=== PATIENT | female | born 1935 | race Caucasian/White ===

== ENCOUNTER 2018-01-10 16:15 | Observation (INO) | payer OTHER ==
[2018-01-10] MEDS ORDERED: SODIUM CHLORIDE 1,000 ML IV STA (16:20)
[2018-01-10] MEDS ORDERED: MAG HYDROX/AL HYDROX/SIMETH 30 ML UNIT-DOSE CUP PO ONE (17:05)
[2018-01-10] MEDS ORDERED: FAMOTIDINE 20 MG/50 ML IVPB 20 MG/50 ML MG IVPB ONE ×2 (17:05→17:18)
[2018-01-10] MEDS ORDERED: ACETAMINOPHEN 1000 MG/100 ML VIAL (NON FORMULARY) IVPB ONE (17:05)
--- NOTE | 2018-01-10 17:05 | PDOC ---
History of Present Illness - General Chief Complaint: Diarrhea Stated Complaint: diarrhea Time Seen by Provider: 01/10/18 16:21 History Source: Patient Exam Limitations: No Limitations - History of Present Illness Initial Comments: 01/10/18 19:25 Shine 82 YOF with HTN, HLD presenting with multiple episodes of watery, mucus diarrhea x 3 days, Up to 10X per day, a/w weakness. able to tolerate oral intake/fluids, but has runs of diarrhea with difficulty getting to the bathroom. No suspicious food intake, started after eating home-made waffles. No other sick contacts. +dysuria initially, since resolved. PMD: Dr. Sommres. 01/10/18 19:28 Past History - Past Medical History Allergies/Adverse Reactions: Allergies Allergy/AdvReac Type Severity Reaction Status Date / Time No Known Allergies Allergy Verified 01/10/18 17:01 Home Medications: Ambulatory Orders Hydrochlorothiazide 12.5 mg PO DAILY 08/08/12 Irbesartan [Avapro (Nf) -] 300 mg PO DAILY 08/08/12 Rosuvastatin Calcium [Crestor] 5 mg PO DAILY 08/08/12 Anemia: No Asthma: No Cancer: No Cardiac Disorders: Yes CVA: No COPD: No CHF: No DVT: No Dementia: No Diabetes: No GI Disorders: No Disorders: No HTN: Yes Hypercholesterolemia: Yes Liver Disease: No Seizures: No Thyroid Disease: No - Surgical History Abdominal Surgery: No Appendectomy: No Cardiac Surgery: No Cholecystectomy: No Lung Surgery: No Neurologic Surgery: No Orthopedic Surgery: Yes (left knee arthroscopy) - Immunization History Td Vaccination: No TDAP Vaccination: No - Suicide/Smoking/Psychosocial Hx Smoking Status: No Smoking History: Never smoked Have you smoked in the past 12 months: No Number of Cigarettes Smoked Daily: 0 Hx Alcohol Use: No Drug/Substance Use Hx: No Substance Use Type: None Hx Substance Use Treatment: No Review of Systems - Review of Systems Able to Perform ROS?: Yes Comments:: 01/10/18 19:27 GENERAL/CONSTITUTIONAL: No fever or chills. +weakness. no sweats. HEAD, EYES, EARS, NOSE AND THROAT: No sore throat or mouth pain. No difficulty swallowing.. No congestion. CARDIOVASCULAR: No chest pain or palpitations, syncope or edema. RESPIRATORY: No SOB, cough, wheezing, or hemoptysis. GASTROINTESTINAL No nausea/vomiting. No bloody stools. +diarrhea. GENITOURINARY: No hematuria, frequency, urgency or other changes. +dysuria MUSCULOSKELETAL: No joint or muscle swelling or pain. No neck or back pain. SKIN: No rash or changes in skin color or lesions. NEUROLOGIC: No headache, vertigo, loss of consciousness, or change in strength/ sensation. No gait instability. HEMATOLOGIC/LYMPHATIC: No anemia, easy bruising/bleeding, or history of blood clots. ALLERGIC/IMMUNOLOGIC: No allergies All other systems reviewed and negative, or as documented in HPI. *Physical Exam - Vital Signs Last Vital Signs Temp Pulse Resp BP Pulse Ox 98.6 F 89 18 133/69 100 01/10/18 16:15 01/10/18 16:15 01/10/18 16:15 01/10/18 16:15 01/10/18 16:15 - Physical Exam Comments: 01/10/18 19:26 General: Well appearing, awake and alert, NAD. HEENT: NCAT, PERRL, EOMI, clear conjunctiva, anicteric, moist mucus membranes, clear oropharynx, no oral lesions.. Neck: neck supple, FROM Resp: CTAB, normal and even respirations, no respiratory distress CVS: RRR, no murmurs, 2+ peripheral pulses throughout, no peripheral edema Abdomen: soft, mild tenderness in periumbilical region. no peritoneal signs. Back: nontender, normal inspection and ROM. No CVAT. MSK: no edema, LOPEZ x4, ROM intact. No clubbing or cyanosis. normal bulk and tone. Neuro: alert, oriented appropriately Skin: warm and well perfused, cap refill <2 sec, normal color ED Treatment Course - LABORATORY CBC & Chemistry Diagram: 01/10/18 16:44 01/10/18 16:44 Medical Decision Making - Medical Decision Making 01/10/18 19:25 [place] 82 YOF with HTN, HLD presenting with multiple episodes of watery, mucus diarrhea x 3 days, Up to 10X per day, a/w weakness. able to tolerate oral intake/fluids, but has runs of diarrhea with difficulty getting to the bathroom. No suspicious food intake, started after eating home-made waffles. No other sick contacts. DDx abdominal pain: GERD, PUD, esophageal spasm, pancreatitis, hepatitis, acute colitis, gastroenteritis, cholecystitis, UTI, pyelonephritis, hernia, appendicitis, diverticulitis, mesenteric ischemia. Vital signs reviewed, wnl. Low grade fever rectally Infection Plan: CBC, CMP, LFTs, lipase, UA, urine cx, lactic acid, ECG, trop, CXR. resuscitative IVF, analgesia, IV abx ceftriaxone/flagyl. Prior notes reviewed, including admissions, discharges and consultations. laboratory results and imaging reviewed, basic labs and lytes wnl, notable for mild elevation in total bili. Lipase and LFTs are normal. Stool cultures ordered, pending sample. lactic normal, so lower likelihood of severe infection/bowel iscehmia. CT a/p confirms acute colitis and dilated loops of bowel with fluid levels c/w diarrheal illness. abx with cef/flagyl for acute colitis treatment given severity no C diff risk factors or recent abx use, defer C diff testing, but will order for stool testing Dispo: admit for hydration, abx, management of acute colitis. Supportive care. Admit to hospitalistDr. Sommers primary doctor. 01/10/18 19:31 *DC/Admit/Observation/Transfer Diagnosis at time of Disposition: Acute colitis - Discharge Dispostion Condition at time of disposition: Guarded Decision to Admit order: Yes Decision to Admit order Date/Time: 01/10/18 19:32 Decision to Admit Order Category Date Time Status Decision to Admit to Hospital Routine Admission 01/10/18 19:02 Active - Referrals - Patient Instructions - Post Discharge Activity
[2018-01-10 17:06] LABS: BASO % 0.4 % (0-2.0); EOS % 0.7 % (0-4.5); HEMATOCRIT 42.1 % (32.4-45.2); HEMOGLOBIN 14.1 GM/dl (10.7-15.3); LYMPH % 11.7 % (8-40); MCH 29.9 pg (25.7-33.7); MCHC 33.4 g/dl (32.0-36.0); MEAN CELL VOLUME 89.3 fl (80-96); MEAN PLT VOLUME 9.8 fl (7.5-11.1); MONO % 16.1 % (3.8-10.2); NEUT % 71.1 % (42.8-82.8); PLATELET COUNT 171 K/MM3 (134-434); RBC 4.72 M/mm3 (3.60-5.2); RDW 12.6 % (11.6-15.6); WHITE BLOOD COUNT 5.5 K/mm3 (4.0-10.8)
[2018-01-10] MEDS ORDERED: MAG HYDROX/AL HYDROX/SIMETH 30 ML UNIT-DOSE CUP ONE (17:18)
[2018-01-10] MEDS ORDERED: ACETAMINOPHEN INJECTION 100 ML IVPB ONE (17:18)
[2018-01-10 17:26] LABS: ALBUMIN 3.5 g/dl (3.5-5.0); ALK PHOS 54 U/L (32-92); ANION GAP 12 MMOL/L (8-16); BILIRUBIN,TOTAL 1.9 mg/dl (0.2-1.0); BLOOD UREA NITROGEN 25 mg/dl (7-18); CALCIUM 8.1 mg/dl (8.4-10.2); CHLORIDE 100 mmol/L (98-107); CO2 25 mmol/L (22-28); CREATININE 1.2 mg/dl (0.6-1.3); GLUCOSE,RANDOM 97 mg/dl (74-106); POTASSIUM 4.3 mmol/L (3.5-5.1); SGOT/AST 27 U/L (10-42); SGPT/ALT 22 U/L (10-40); SODIUM 137 mmol/L (136-145); TOT PROT 5.8 g/dl (6.4-8.3)
[2018-01-10 18:12] LABS: LIPASE 68 U/L (73-393)
[2018-01-10] MEDS ORDERED: cefTRIAXone SODIUM 1 GM VIAL ONE (19:06)
[2018-01-10] MEDS ORDERED: CEFTRIAXONE 1,000 MG in DEXTROSE 5%-WATER - 50 ML IVPB ONE (19:18)
--- NOTE | 2018-01-10 19:44 | HP ---
CHIEF COMPLAINT: Diarrhea PCP: Dr. Sommers HISTORY OF PRESENT ILLNESS: This is a 82 y/o woman with a past medical history of Hypertension, Hyperlipidemia, Cardiac, RA. Who presents to the ED with her daughter for watery diarrhea x 3 days. Patient's daughter reports that the patient has been having watery diarrhea every time she eats or drinks anything since last Wednesday. The patient reports having episodes of dizziness on Wednesday and Wednesday - now resolved. The patient denies and sick contacts. Patient denies eating seafood or any new medications. Patient denies fever, chills, cough, PHILLIPS, SOB, CP , AP, N/V, constipation, dysuria. ER course was notable for: (1) CTAP- Increased fluid levels within large/small bowel loops, mild concentric wall thickening along the left colon suggesting Acute Colitis. Sigmoid Diverticulosis, no evidence of Diverticulitis (2) BUN 25 (3) T Bili 1.9 Recent Travel: None PAST MEDICAL HISTORY: See HPI PAST SURGICAL HISTORY: L- knee arthroscopy Social History: Smoking: Never Alcohol: None Drugs: None Lives with family Family History: Non-contributory Allergies No Known Allergies Allergy (Verified 01/10/18 17:01) HOME MEDICATIONS: Home Medications Medication Instructions Recorded Hydrochlorothiazide 12.5 mg PO DAILY 08/08/12 Irbesartan [Avapro (Nf) -] 300 mg PO DAILY 08/08/12 Rosuvastatin Calcium [Crestor] 5 mg PO DAILY 08/08/12 REVIEW OF SYSTEMS CONSTITUTIONAL: generalized weakness, malaise Absent: fever, chills, diaphoresis, loss of appetite, weight change HEENT: Absent: rhinorrhea, nasal congestion, throat pain, throat swelling, difficulty swallowing, mouth swelling, ear pain, eye pain, visual changes CARDIOVASCULAR: Absent: chest pain, syncope, palpitations, irregular heart rate, lightheadedness , peripheral edema RESPIRATORY: Absent: cough, shortness of breath, dyspnea with exertion, orthopnea, wheezing, stridor, hemoptysis GASTROINTESTINAL: diarrhea Absent: abdominal pain, abdominal distension, nausea, vomiting, constipation, melena, hematochezia GENITOURINARY: Absent: dysuria, frequency, urgency, hesitancy, hematuria, flank pain, genital pain MUSCULOSKELETAL: Absent: myalgia, arthralgia, joint swelling, back pain, neck pain SKIN: Absent: rash, itching, pallor HEMATOLOGIC/IMMUNOLOGIC: Absent: easy bleeding, easy bruising, lymphadenopathy, frequent infections ENDOCRINE: Absent: unexplained weight gain, unexplained weight loss, heat intolerance, cold intolerance NEUROLOGIC: Absent: headache, focal weakness or paresthesias, dizziness, unsteady gait, seizure, mental status changes, bladder or bowel incontinence PSYCHIATRIC: Absent: anxiety, depression, suicidal or homicidal ideation, hallucinations. PHYSICAL EXAMINATION Vital Signs - 24 hr 01/10/18 01/10/18 16:15 18:25 Temperature 98.6 F 99.3 F Pulse Rate 89 Respiratory 18 Rate Blood Pressure 133/69 O2 Sat by Pulse 100 Oximetry (%) GENERAL: Awake, alert, and fully oriented, in no acute distress. HEAD: Normal with no signs of trauma. EYES: Pupils equal, round and reactive to light, extraocular movements intact, sclera anicteric, conjunctiva clear. No lid lag. EARS, NOSE, THROAT: Ears normal, nares patent, oropharynx clear without exudates. Dry mucous membranes. NECK: Normal range of motion, supple without lymphadenopathy, JVD, or masses. LUNGS: Breath sounds equal, clear to auscultation bilaterally. No wheezes, and no crackles. No accessory muscle use. HEART: Regular rate and rhythm, normal S1 and S2 without murmur, rub or gallop. ABDOMEN: Soft, nontender, not distended, normoactive bowel sounds, no guarding, no rebound, no masses. No hepatomegaly or splenomegaly. MUSCULOSKELETAL: Normal range of motion at all joints. No bony deformities or tenderness. No CVA tenderness. UPPER EXTREMITIES: 2+ pulses, warm, well-perfused. No cyanosis. No clubbing. No peripheral edema. LOWER EXTREMITIES: 2+ pulses, warm, well-perfused. No calf tenderness. No peripheral edema. NEUROLOGICAL: Cranial nerves II-XII intact. Normal speech. Gait not observed. PSYCHIATRIC: Cooperative. Good eye contact. Appropriate mood and affect. SKIN: Warm, dry, normal turgor, no rashes or lesions noted, normal capillary refill. Laboratory Results - last 24 hr 01/10/18 01/10/18 01/10/18 16:44 16:44 16:50 WBC 5.5 RBC 4.72 Hgb 14.1 Hct 42.1 MCV 89.3 MCH 29.9 MCHC 33.4 RDW 12.6 Plt Count 171 MPV 9.8 Absolute Neuts (auto) 4.0 Neutrophils % 71.1 Lymphocytes % 11.7 Monocytes % 16.1 H Eosinophils % 0.7 Basophils % 0.4 Sodium 137 Potassium 4.3 Chloride 100 Carbon Dioxide 25 Anion Gap 12 BUN 25 H Creatinine 1.2 Creat Clearance w eGFR 43.01 Random Glucose 97 Lactic Acid 0.8 Calcium 8.1 L Total Bilirubin 1.9 H AST 27 D ALT 22 D Alkaline Phosphatase 54 Total Protein 5.8 L Albumin 3.5 Lipase 68 L ASSESSMENT/PLAN: This is a 82 y/o woman with a PMHx of: HTN, HLD, Cardiac, RA. Placed in Observation for Dehydration secondary to Acute Diarrheal Illness for further evaluation of their emergent condition. FEN - D51/2NS@42ml/hr - Replete lytes prn - Clear Liquid Diet DVT ppx - OOB - SCDs - Consider AC if LOS > 48 hrs Code Status: Full Code Dispo: Observation Problem List - Problem (1) Acute colitis Assessment/Plan: - Likely bacterial vs viral - Stool cultures, C- Diff, O&P- pending - CT abdomen showed- increased fluid within large/small bowel loops. mild concentric wall thickening along left colon. sigmoid diverticulosis - Flagyl, Rocephin started in ED, will continue - Appreciate GI consult - Clear Diet - Gentle IVF - Monitor CBC, BMP - Monitor vitals Code(s): K52.9 - NONINFECTIVE GASTROENTERITIS AND COLITIS, UNSPECIFIED (2) Dehydration Assessment/Plan: - Likely secondary to acute diarrhea - Continue IVF - Clear Liquid - Monitor lytes - Monitor vitals Code(s): E86.0 - DEHYDRATION (3) HTN (hypertension) Assessment/Plan: - stable - Will hold med for now secondary to dehydration - Monitor BP Code(s): I10 - ESSENTIAL (PRIMARY) HYPERTENSION (4) HLD (hyperlipidemia) Assessment/Plan: - stable - Continue Crestor Code(s): E78.5 - HYPERLIPIDEMIA, UNSPECIFIED (5) Rheumatoid arthritis Assessment/Plan: - Stable - Continue to monitor and treat with interventions accordingly Code(s): M06.9 - RHEUMATOID ARTHRITIS, UNSPECIFIED Visit type - Emergency Visit Emergency Visit: Yes ED Registration Date: 01/10/18 Care time: The patient presented to the Emergency Department on the above date and was hospitalized for further evaluation of their emergent condition. - New Patient This patient is new to me today: Yes Date on this admission: 01/10/18 - Critical Care Critical Care patient: No Hospitalist Screening - Colonoscopy Questionnaire Colonoscopy Questionnaire: Colonoscopy Questionnaire - Patient: 50 - 75 years old and never had a screening colonoscopy: Unknown History of colon or rectal polyps, or CA: Unknown History of IBD, Crohn's disease or UC: Unknown History of abdominal radiation therapy as a child: Unknown - Relative: 1 with colon or rectal CA, or polyps at age 60 or younger: Unknown Colon or rectal CA diagnosed at age 45 or younger: Unknown Multiple relatives with colon or rectal CA: Unknown - Outcome: Screening Result: Negative Screen
[2018-01-10 21:52] VITALS: BMI 17.9
[2018-01-10 22:12] LABS: PH,URINE 5.5 (4.5-8); URINE APPEARANCE Clear; URINE BILIRUBIN Negative (NEGATIVE); URINE COLOR Yellow; URINE GLUCOSE (UA) Negative (NEGATIVE); URINE KETONE Trace (NEGATIVE); URINE LEUK ESTERASE Negative (NEGATIVE); URINE NITRITE Negative (NEGATIVE); URINE PROTEIN Negative (NEGATIVE); URINE UROBILINOGEN 0.2 (0.2-1.0)
[2018-01-10 23:08] LABS: EPI CELLS FEW /HPF; URINE BACTERIA FEW /hpf (NEGATIVE)
[2018-01-10] MEDS: ROSUVASTATIN CA 5 MG TABLET (FP) PO SCH (23:12)
[2018-01-10] MEDS: DEXTROSE 5%-0.45% SALINE 1,000 ML IV SCH (23:12)
[2018-01-11 08:29] LABS: HEMATOCRIT 37.4 % (32.4-45.2); HEMOGLOBIN 12.6 GM/dl (10.7-15.3); MCH 30.4 pg (25.7-33.7); MCHC 33.7 g/dl (32.0-36.0); MEAN CELL VOLUME 90.2 fl (80-96); MEAN PLT VOLUME 10.1 fl (7.5-11.1); PLATELET COUNT 153 K/MM3 (134-434); RBC 4.15 M/mm3 (3.60-5.2); RDW 12.6 % (11.6-15.6); WHITE BLOOD COUNT 4.3 K/mm3 (4.0-10.8)
--- NOTE | 2018-01-11 08:30 | PN ---
Physical Exam: SUBJECTIVE: Patient seen and examined, The patient reports abdominal cramping And decreased appetite. OBJECTIVE:Patient is a 82-year-old female with a past medical history hypertension, hyperlipidemia, rheumatoid arthritis, patient is admitted from the emergency department to observation for dehydration with acute diarrheal illness. Vital Signs Period Temp Pulse Resp BP Sys/Ford Pulse Ox Last 24 Hr 97.8 F-99.3 F 77-89 18-20 110-138/54-89 96-100 GENERAL: The patient is awake, alert, and fully oriented, in no acute distress. HEAD: Normal with no signs of trauma. EYES: PERRL, extraocular movements intact, sclera anicteric, conjunctiva clear. No ptosis. ENT: Ears normal, nares patent, oropharynx clear without exudates, moist mucous membranes. NECK: Trachea midline, full range of motion, supple. LUNGS: Breath sounds equal, clear to auscultation bilaterally, no wheezes, no crackles, no accessory muscle use. HEART: Regular rate and rhythm, S1, S2 without murmur, rub or gallop. ABDOMEN: Soft, nontender, nondistended, Hyperactive bowel sounds, no guarding, no rebound, no hepatosplenomegaly, no masses. EXTREMITIES: 2+ pulses, warm, well-perfused, no edema. NEUROLOGICAL: Cranial nerves II through XII grossly intact. Normal speech, gait not observed. PSYCH: Normal mood, normal affect. SKIN: Warm, dry, normal turgor, no rashes or lesions noted Laboratory Results - last 24 hr 01/10/18 01/10/18 01/10/18 16:44 16:44 16:50 WBC 5.5 RBC 4.72 Hgb 14.1 Hct 42.1 MCV 89.3 MCH 29.9 MCHC 33.4 RDW 12.6 Plt Count 171 MPV 9.8 Absolute Neuts (auto) 4.0 Neutrophils % 71.1 Lymphocytes % 11.7 Monocytes % 16.1 H Eosinophils % 0.7 Basophils % 0.4 Sodium 137 Potassium 4.3 Chloride 100 Carbon Dioxide 25 Anion Gap 12 BUN 25 H Creatinine 1.2 Creat Clearance w eGFR 43.01 Random Glucose 97 Lactic Acid 0.8 Calcium 8.1 L Total Bilirubin 1.9 H AST 27 D ALT 22 D Alkaline Phosphatase 54 Total Protein 5.8 L Albumin 3.5 Lipase 68 L Urine Color Urine Appearance Urine pH Ur Specific [place] Urine Protein Urine Glucose (UA) Urine Ketones Urine Blood Urine Nitrite Urine Bilirubin Urine Urobilinogen Ur Leukocyte Esterase Urine RBC Urine WBC Ur Epithelial Cells Urine Bacteria 01/10/18 22:03 WBC RBC Hgb Hct MCV MCH MCHC RDW Plt Count MPV Absolute Neuts (auto) Neutrophils % Lymphocytes % Monocytes % Eosinophils % Basophils % Sodium Potassium Chloride Carbon Dioxide Anion Gap BUN Creatinine Creat Clearance w eGFR Random Glucose Lactic Acid Calcium Total Bilirubin AST ALT Alkaline Phosphatase Total Protein Albumin Lipase Urine Color Yellow Urine Appearance Clear Urine pH 5.5 Ur Specific [place] <= 1.005 Urine Protein Negative Urine Glucose (UA) Negative Urine Ketones Trace Urine Blood Trace-lysed H Urine Nitrite Negative Urine Bilirubin Negative Urine Urobilinogen 0.2 Ur Leukocyte Esterase Negative Urine RBC 2-5 Urine WBC 2-5 Ur Epithelial Cells Few Urine Bacteria Few Active Medications Generic Name Dose Route Start Last Admin Trade Name Freq PRN Reason Stop Dose Admin Dextrose/Sodium Chloride 1,000 mls @ 42 mls/hr 01/10/18 19:30 01/10/18 23:12 D5-1/2ns - IV 42 mls/hr ASDIR DIAZ Administration Metronidazole 500 mg in 100 mls @ 100 mls/hr 01/11/18 02:00 01/11/18 01:14 Flagyl 500mg Premixed Ivpb - IVPB 100 mls/hr Q8H-IV DIAZ Administration Ceftriaxone Sodium 1 gm in 50 mls @ 100 mls/hr 01/11/18 10:00 Rocephin 1gm Ivpb (Pre-Docked) IVPB DAILY DIAZ Protocol Lactobacillus Acidophilus 1 tab 01/11/18 10:00 Bacid - PO DAILY DIAZ Rosuvastatin Calcium 5 mg 01/10/18 22:00 01/10/18 23:12 Crestor - PO 5 mg HS DIAZ Administration Imaging: CT of abdomen and pelvis: Equivocal mild concentric wall thickening seen along the left colon could be basis of acute colitis sigmoid diverticulosis. No evidence of acute diverticulitis, stable 1.3 cm left adrenal nodule ASSESSMENT/PLAN: 1) GI Acute colitis - Pending stool culture, clear liquid diet will advance as tolerated. - Appreciate GI input 2) cardiovascular Hypertension - Continue irberstartan, Will hold hydrochlorothiazide secondary to dehydration , b/p at goal, strict b/p monitoring q4h Hyperlipidemia - continue statin f/e/n - clear liquid diet - advance as tolerated - gentle iv hydration ppx - pepcid - oob - heparin sq - scd dispo: pt requires observation Visit type - Emergency Visit Emergency Visit: Yes ED Registration Date: 01/10/18 Care time: The patient presented to the Emergency Department on the above date and was hospitalized for further evaluation of their emergent condition. - New Patient This patient is new to me today: No - Critical Care Critical Care patient: No - Discharge Referral Referred to [facility] No
[2018-01-11 08:52] LABS: ANION GAP 9 MMOL/L (8-16); BLOOD UREA NITROGEN 23 mg/dl (7-18); CHLORIDE 103 mmol/L (98-107); CO2 26 mmol/L (22-28); CREATININE 1.1 mg/dl (0.6-1.3); GLUCOSE,RANDOM 97 mg/dl (74-106); MAGNESIUM 1.8 mg/dL (1.8-2.4); PHOSPHOROUS 3.1 mg/dl (2.5-4.6); POTASSIUM 4.2 mmol/L (3.5-5.1); SODIUM 138 mmol/L (136-145)
[2018-01-11] MEDS ORDERED: MAGNESIUM SULF 50% (8.12 MEQ/2 ML-1 GM VIAL) IVPB ONE (09:02)
[2018-01-11] MEDS: CEFTRIAXONE 1 GM/50 ML BAG IVPB SCH (09:24)
[2018-01-11] MEDS: LACTOBACILLUS ACIDOPHILUS 1 TABLET PO SCH (09:25)
[2018-01-11] MEDS ORDERED: MAGNESIUM 1GM/D5W - 1 GM/100 ML IVPB IVPB ONE (09:30)
[2018-01-11] MEDS ORDERED: TOBRA 0.3%/DEXAMETH 0.1% OPHTHALMIC SUSP 2.5 ML BTL ONE (09:45)
[2018-01-11] MEDS ORDERED: CEFTRIAXONE 1 GM in DEXTROSE 5%-WATER - 50 ML IVPB SCH (10:00)
[2018-01-11] MEDS ORDERED: IRBESARTAN 300 MG PO SCH (10:00)
[2018-01-11] MEDS: ROSUVASTATIN CA 5 MG TABLET (FP) PO SCH ×2 (10:29→21:30)
[2018-01-11] MEDS: FAMOTIDINE 20 MG TABLET PO SCH ×2 (10:30→21:30)
[2018-01-11] MEDS: LOSARTAN POTASSIUM 50 MG TABLET (FP) PO SCH (10:30)
[2018-01-11 10:46] LABS: PLATELET ESTIMATE ADEQUATE
--- NOTE | 2018-01-11 16:26 | PN ---
Progress Note (short form) - Note Progress Note: Patient seen and consult dictated. Suspect gastroenteritis ?viral; less likely bacterial. Also doubt ischemic colitis. Has no fever, leukocytosis and prelim stool cultures negative. On IV antibiotics and PO liquids Would advance diet as tolerated Avoid antidiarrheal meds If stool cultures negative, would stop IV antibiotics and monitor. If able to take adequate PO/hydration, can discharge home when stable. No need for colonoscopy at present. If diarrhea persists/worsens, will consider for flex sig.
--- NOTE | 2018-01-11 16:44 | EKG ---
Test Reason : Blood Pressure : / mmHG Vent. Rate : 074 BPM Atrial Rate : 074 BPM P-R Int : 140 ms QRS Dur : 090 ms QT Int : 436 ms P-R-T Axes : 081 -06 -10 degrees QTc Int : 483 ms POOR DATA QUALITY, INTERPRETATION MAY BE ADVERSELY AFFECTED NORMAL SINUS RHYTHM POSSIBLE LEFT ATRIAL ENLARGEMENT LEFT VENTRICULAR HYPERTROPHY ABNORMAL ECG WHEN COMPARED WITH ECG OF 07-JUN-2004 08:40, NO SIGNIFICANT CHANGE WAS FOUND Confirmed by Fili Perkins ([id number]) on 01/11/2018 4:44:14 PM Referred By: VIKAS Confirmed By:Fili Perkins
[2018-01-12] MEDS: DEXTROSE 5%-0.45% SALINE 1,000 ML IV SCH (01:23)
[2018-01-12 06:30] VITALS: TEMP 98.1
--- NOTE | 2018-01-12 07:18 | CONS ---
DATE OF CONSULTATION: 01/11/2018 REASON FOR CONSULTATION: I was asked to evaluate this 82-year-old female admitted with the acute onset of watery diarrhea. HISTORY OF PRESENT ILLNESS: The patient is an 82-year-old female with a history of hypertension, hypercholesterolemia, and rheumatoid arthritis. She developed the relatively acute onset of diarrhea over 1-2 days and was admitted to the hospital. She felt weak and had difficulty controlling her bowels due to the watery diarrhea. Her hospital course has been notable for the patient being placed on both IV Flagyl and ceftriaxone. Her stool cultures to date are unremarkable, and her laboratory tests show a normal white count 4.3, hemoglobin 12.6, with normal chemistries including liver chemistries and lipase. The patient states that her loose bowels have slightly persisted, but are much less frequent today. A CT scan of the abdomen and pelvis showed slight left-sided wall thickening consistent with a mild colitis and also possibly with some small bowel changes consistent with enteritis. A few sigmoid diverticula are also noted. PHYSICAL EXAMINATION: General: The patient currently is resting in bed, alert and oriented. Vital Signs: She has no fever, stable vital signs. HEENT: Conjunctiva pink. Lungs: Clear. Cardiac: Regular rate and rhythm. . Abdomen: Soft, flat, and nontender. IMPRESSION: Patient most likely with gastroenteritis, may be viral in view of the normal white count. Currently on antibiotics with stool cultures still pending. RECOMMENDATIONS: Will suggest patient be started on p.o./diet as tolerated and be monitored. Would not suggest colonoscopy at the present time. Would consider discontinuing IV antibiotics if stool cultures are negative and with further monitoring. TIFFANY DAVIS M.D. [id number]
[2018-01-12 08:19] LABS: BASO % 0.4 % (0-2.0); EOS % 3.4 % (0-4.5); HEMATOCRIT 38.2 % (32.4-45.2); HEMOGLOBIN 12.3 GM/dl (10.7-15.3); LYMPH % 24.7 % (8-40); MCH 29.5 pg (25.7-33.7); MCHC 32.3 g/dl (32.0-36.0); MEAN CELL VOLUME 91.5 fl (80-96); MEAN PLT VOLUME 9.7 fl (7.5-11.1); MONO % 16.2 % (3.8-10.2); NEUT % 55.3 % (42.8-82.8); PLATELET COUNT 150 K/MM3 (134-434); RBC 4.17 M/mm3 (3.60-5.2); RDW 12.8 % (11.6-15.6); WHITE BLOOD COUNT 4.8 K/mm3 (4.0-10.8)
[2018-01-12 08:26] LABS: ANION GAP 8 MMOL/L (8-16); BLOOD UREA NITROGEN 14 mg/dl (7-18); CALCIUM 8.1 mg/dl (8.4-10.2); CHLORIDE 105 mmol/L (98-107); CO2 27 mmol/L (22-28); CREATININE 0.9 mg/dl (0.6-1.3); GLUCOSE,RANDOM 106 mg/dl (74-106); MAGNESIUM 2.2 mg/dL (1.8-2.4); PHOSPHOROUS 2.6 mg/dl (2.5-4.6); POTASSIUM 3.8 mmol/L (3.5-5.1); SODIUM 140 mmol/L (136-145)
[2018-01-12] MEDS: ROSUVASTATIN CA 5 MG TABLET (FP) PO SCH (10:30)
[2018-01-12] MEDS: FAMOTIDINE 20 MG TABLET PO SCH (10:30)
[2018-01-12] MEDS: LACTOBACILLUS ACIDOPHILUS 1 TABLET PO SCH (10:30)
[2018-01-12] MEDS: CEFTRIAXONE 1 GM/50 ML BAG IVPB SCH (10:31)
[2018-01-12] MEDS: LOSARTAN POTASSIUM 50 MG TABLET (FP) PO SCH (10:31)
--- NOTE | 2018-01-12 13:51 | PN ---
Physical Exam: SUBJECTIVE: Patient seen and examined, Patient ambulatory at that site steady gait noted, forced decreased appetite and one episode of loose stools noted OBJECTIVE::Patient is a 82-year-old female with a past medical history hypertension, hyperlipidemia, rheumatoid arthritis, patient is admitted from the emergency department to observation for dehydration with acute diarrheal illness. Vital Signs Period Temp Pulse Resp BP Sys/Ford Pulse Ox Last 24 Hr 97.9 F-98.4 F 62-72 18-18 101-119/49-61 98-100 GENERAL: The patient is awake, alert, and fully oriented, in no acute distress. HEAD: Normal with no signs of trauma. EYES: PERRL, extraocular movements intact, sclera anicteric, conjunctiva clear. No ptosis. ENT: Ears normal, nares patent, oropharynx clear without exudates, moist mucous membranes. NECK: Trachea midline, full range of motion, supple. LUNGS: Breath sounds equal, clear to auscultation bilaterally, no wheezes, no crackles, no accessory muscle use. HEART: Regular rate and rhythm, S1, S2 without murmur, rub or gallop. ABDOMEN: Soft, nontender, nondistended, normoactive bowel sounds, no guarding, no rebound, no hepatosplenomegaly, no masses. EXTREMITIES: 2+ pulses, warm, well-perfused, no edema. NEUROLOGICAL: Cranial nerves II through XII grossly intact. Normal speech, Steady gait noted observed. PSYCH: Normal mood, normal affect. SKIN: Warm, dry, normal turgor, no rashes or lesions noted Laboratory Results - last 24 hr 01/12/18 01/12/18 07:10 07:10 WBC 4.8 RBC 4.17 Hgb 12.3 Hct 38.2 MCV 91.5 MCH 29.5 MCHC 32.3 RDW 12.8 Plt Count 150 MPV 9.7 Absolute Neuts (auto) 2.6 Neutrophils % 55.3 Lymphocytes % 24.7 Monocytes % 16.2 H Eosinophils % 3.4 Basophils % 0.4 Sodium 140 Potassium 3.8 Chloride 105 Carbon Dioxide 27 Anion Gap 8 BUN 14 Creatinine 0.9 Creat Clearance w eGFR 59.94 Random Glucose 106 Calcium 8.1 L Phosphorus 2.6 Magnesium 2.2 Active Medications Generic Name Dose Route Start Last Admin Trade Name Freq PRN Reason Stop Dose Admin Famotidine 20 mg 01/11/18 10:00 01/12/18 10:30 Pepcid - PO 20 mg BID DIAZ Administration Dextrose/Sodium Chloride 1,000 mls @ 42 mls/hr 01/10/18 19:30 01/12/18 01:23 D5-1/2ns - IV 42 mls/hr ASDIR DIAZ Administration Ceftriaxone Sodium 1 gm in 50 mls @ 100 mls/hr 01/11/18 10:00 01/12/18 10:31 Rocephin 1gm Ivpb (Pre-Docked) IVPB 100 mls/hr DAILY DIAZ Administration Protocol Lactobacillus Acidophilus 1 tab 01/11/18 10:00 01/12/18 10:30 Bacid - PO 1 tab DAILY DIAZ Administration Losartan Potassium 100 mg 01/11/18 10:00 01/12/18 10:31 Cozaar - PO 100 mg DAILY DIAZ Administration Rosuvastatin Calcium 5 mg 01/10/18 22:00 01/11/18 21:30 Crestor - PO 5 mg HS DIAZ Administration Rosuvastatin Calcium 5 mg 01/11/18 10:00 01/12/18 10:30 Crestor - PO 5 mg DAILY DIAZ Administration Microbiology 01/10/18 22:45 Gram Stain - Final Stool Salmonella/Shigella Culture - Preliminary NO ENTERIC PATHOGENS, 24 HOURS, ON PRIMARY PLATES Yersinia Culture - Preliminary NO ENTERIC PATHOGENS, 24 HOURS, ON PRIMARY PLATES Vibrio Culture - Final Escherichia coli 0157 Culture - Final NO GROWTH OF E COLI 0157 OBTAINED 01/10/18 22:03 Urine Culture - Final Urine - Urine Clean Catch 01/10/18 22:45 Clostridium difficile Antigen (GHAZAL) - Final, Negative Stool Clostridium difficile Toxin Assay - Final, Negative Imaging: CT of abdomen and pelvis: Equivocal mild concentric wall thickening seen along the left colon could be basis of acute colitis sigmoid diverticulosis. No evidence of acute diverticulitis, stable 1.3 cm left adrenal nodule ASSESSMENT/PLAN: 1) GI Acute colitis - Stool culture negative to date, will advance. - GI consulted and following 2) cardiovascular Hypertension - Continue irberstartan, Will hold hydrochlorothiazide secondary to dehydration , b/p at goal, strict b/p monitoring q4h Hyperlipidemia - continue statin f/e/n - full liquid diet then advance as tolerated - gentle iv hydration ppx - pepcid - oob - heparin sq - scd dispo: pt requires observation Visit type - Emergency Visit Emergency Visit: Yes ED Registration Date: 01/10/18 Care time: The patient presented to the Emergency Department on the above date and was hospitalized for further evaluation of their emergent condition. - New Patient This patient is new to me today: No - Critical Care Critical Care patient: No - Discharge Referral Referred to [facility] No
[2018-01-12 14:07] VITALS: BP 128/62; PULSE 66
--- NOTE | 2018-01-12 14:54 | DS ---
Physical Exam: SUBJECTIVE: Patient seen and examined, patient reports feeling well, ambulatory at bedside, denies any abdominal Pain, nausea or vomiting, patient reports one episode of diarherra this AM OBJECTIVE: This is a 82 y/o woman with a past medical history of Hypertension, Hyperlipidemia, Cardiac, RA. Who presents to the ED with her daughter for watery diarrhea x 3 days. Patient's daughter reports that the patient has been having watery diarrhea every time she eats or drinks anything since last Wednesday. The patient reports having episodes of dizziness on Wednesday and Wednesday - now resolved. The patient denies and sick contacts. Patient denies eating seafood or any new medications. Patient denies fever, chills, cough, PHILLIPS, SOB, CP , AP, N/V, constipation, dysuria. ER course was notable for: (1) CTAP- Increased fluid levels within large/small bowel loops, mild concentric wall thickening along the left colon suggesting Acute Colitis. Sigmoid Diverticulosis, no evidence of Diverticulitis (2) BUN 25 (3) T Bili 1.9 Vital Signs Period Temp Pulse Resp BP Sys/Ford Pulse Ox Last 24 Hr 97.9 F-98.1 F 62-72 18-19 101-128/49-62 98-100 PHYSICAL EXAM GENERAL: The patient is awake, alert, and fully oriented, in no acute distress. HEAD: Normal with no signs of trauma. EYES: PERRL, extraocular movements intact, sclera anicteric, conjunctiva clear. ENT: Ears normal, nares patent, oropharynx clear without exudates, moist mucous membranes. NECK: Trachea midline, full range of motion, supple. LUNGS: Breath sounds equal, clear to auscultation bilaterally, no wheezes, no crackles, no accessory muscle use. HEART: Regular rate and rhythm, S1, S2 without murmur, rub or gallop. ABDOMEN: Soft, nontender, nondistended, normoactive bowel sounds, no guarding, no rebound, no hepatosplenomegaly, no masses. EXTREMITIES: 2+ pulses, warm, well-perfused, no edema. NEUROLOGICAL: Cranial nerves II through XII grossly intact. Normal speech, gait not observed. PSYCH: Normal mood, normal affect. SKIN: Warm, dry, normal turgor, no rashes or lesions noted. LABS Laboratory Results - last 24 hr 01/12/18 01/12/18 07:10 07:10 WBC 4.8 RBC 4.17 Hgb 12.3 Hct 38.2 MCV 91.5 MCH 29.5 MCHC 32.3 RDW 12.8 Plt Count 150 MPV 9.7 Absolute Neuts (auto) 2.6 Neutrophils % 55.3 Lymphocytes % 24.7 Monocytes % 16.2 H Eosinophils % 3.4 Basophils % 0.4 Sodium 140 Potassium 3.8 Chloride 105 Carbon Dioxide 27 Anion Gap 8 BUN 14 Creatinine 0.9 Creat Clearance w eGFR 59.94 Random Glucose 106 Calcium 8.1 L Phosphorus 2.6 Magnesium 2.2 Microbiology 01/10/18 22:45 Stool Gram Stain - Final 01/10/18 22:45 Stool Salmonella/Shigella Culture - Preliminary NO ENTERIC PATHOGENS, 24 HOURS, ON PRIMARY PLATES 01/10/18 22:45 Stool Yersinia Culture - Preliminary NO ENTERIC PATHOGENS, 24 HOURS, ON PRIMARY PLATES 01/10/18 22:45 Stool Vibrio Culture - Final 01/10/18 22:45 Stool Escherichia coli 0157 Culture - Final NO GROWTH OF E COLI 0157 OBTAINED 01/10/18 22:03 Urine - Urine Clean Catch Urine Culture - Final 01/10/18 22:45 Stool Clostridium difficile Antigen (GHAZAL) - Final 01/10/18 22:45 Stool Clostridium difficile Toxin Assay - Final Imaging: CT of abdomen and pelvis: Equivocal mild concentric wall thickening seen along the left colon could be basis of acute colitis sigmoid diverticulosis. No evidence of acute diverticulitis, stable 1.3 cm left adrenal nodule HOSPITAL COURSE: Patient Was admitted from the emergency department to the medical surgical floor for Dehydration secondary to acute diarrheal illness. Stool cultures are negative to date. GI, Dr Landers was consulted. Patient has a past medical history of hypertension, irberstartan Was continued throughout admission blood pressure remained at goal, hydrochlorothiazide was held secondary to dehydration. PLAN - discharge home to care of daughter - discharged plan discussed with patient's primary care physician, Dr Velázquez and aggrees with plan Date of Admission:01/10/18 Date of Discharge: 01/12/18 Minutes to complete discharge: 45 Discharge Summary Reason For Visit: diarrhea Current Active Problems Acute colitis (Acute) HLD (hyperlipidemia) (Acute) HTN (hypertension) (Acute) Rheumatoid arthritis (Acute) Condition: Improved - Instructions Diet, Activity, Other Instructions: -resume regular low sodium diet - continue all medications as prescribed - immodium for Diarrhea as needed - Please follow-up with your primary care physician, Dr. Sommers 5 days for a repeat basic metabolic profile - If any new persistent symptoms develop please return to emergency department Referrals: Stacia Sommers MD [Staff Physician] - 01/17/18 Disposition: HOME - Home Medications Comprehensive Discharge Medication List: Ambulatory Orders Hydrochlorothiazide 12.5 mg PO DAILY 08/08/12 Irbesartan [Avapro (Nf) -] 300 mg PO DAILY 08/08/12 Rosuvastatin Calcium [Crestor] 5 mg PO DAILY 08/08/12 Lactobacillus Acidophilus [Bacid -] 1 tab PO DAILY #30 tab 01/12/18 This patient is new to me today: No Emergency Visit: Yes ED Registration Date: 01/10/18 Care time: The patient presented to the Emergency Department on the above date and was hospitalized for further evaluation of their emergent condition. Critical Care patient: No - Discharge Referral Referred to [facility] No
== END 2018-01-12 15:15 | disposition home or self-care (01) ==
LOC: FER 16:15 → FM/S 19:02
PROVIDERS: ADMIT Hospitalist; ATTEND Nurse Practitioner Family
PROC: 3E0337Z Introduction of Electrolytic and Water Balance Substance into Peripheral Vein, Percutaneous Approach (ICD-10-PCS; principal; 2018-01-10)
PROC: 3E0337Z Introduction of Electrolytic and Water Balance Substance into Peripheral Vein, Percutaneous Approach (ICD-10-PCS; 2018-01-10)
PROC: 3E03329 Introduction of Other Anti-infective into Peripheral Vein, Percutaneous Approach (ICD-10-PCS; 2018-01-10)
PROC: 3E03329 Introduction of Other Anti-infective into Peripheral Vein, Percutaneous Approach (ICD-10-PCS; 2018-01-10)
PROC: 3E033NZ Introduction of Analgesics, Hypnotics, Sedatives into Peripheral Vein, Percutaneous Approach (ICD-10-PCS; 2018-01-10)
PROC: 3E033GC Introduction of Other Therapeutic Substance into Peripheral Vein, Percutaneous Approach (ICD-10-PCS; 2018-01-10)
DX: K52.9 Noninfective gastroenteritis and colitis, unspecified (principal); E86.0 Dehydration; I10 Essential (primary) hypertension; E78.5 Hyperlipidemia, unspecified; M06.9 Rheumatoid arthritis, unspecified
CPT/HCPCS: 36415; 71045-TC-FY; 74177-TC; 80048; 80053; 81003; 81015; 83605; 83690; 83735; 84100; 85025; 87045; 87046; 87086; 87177; 87205; 87209; 87324; 87449; 93005; 96361; 96365; 96367; 96368; 96375; 97116-GP; 97161-GP; 99284-25; G0378; J0131; J7030

== ENCOUNTER 2024-02-05 11:32 | Inpatient (IN) | payer OTHER ==
[2024-02-05] MEDS ORDERED: ACETAMINOPHEN INJECTION 100 ML ONE (12:35)
[2024-02-05] MEDS: LACTATED RINGERS SOLUTION 1000 ML INFUS.BAG IV ONE (12:45)
[2024-02-05] MEDS: ACETAMINOPHEN 1000 MG/100 ML BAG IVPB ONE (12:45)
[2024-02-05 13:19] LABS: ALBUMIN 4.3 g/dl (3.4-5.0); ALK PHOS 86 U/L (45-117); ANION GAP 8 mmol/L (4-13); BILIRUBIN,TOTAL 1.4 mg/dl (0.2-1); CALCIUM 9.6 mg/dl (8.5-10.1); CHLORIDE 104 mmol/L (98-107); CO2 29 mmol/L (21-32); GLUCOSE,RANDOM 102 mg/dl (74-106); POTASSIUM 4.2 mmol/L (3.5-5.1); SGOT/AST 24 U/L (15-37); SGPT/ALT 15 U/L (7-52); SODIUM 141 mmol/L (136-145); TOT PROT 6.8 g/dl (6.4-8.2)
[2024-02-05 13:42] LABS: HEMATOCRIT 45.3 % (32.4-45.2); MCH 27.5 pg (25.7-33.7); MCHC 30.5 g/dl (32.0-36.0); MEAN CELL VOLUME 90.4 fl (80-96); MEAN PLT VOLUME 9.9 fl (7.5-11.1); PLATELET COUNT 221.4 10^3/uL (134-434); RBC 5.01 10^6/uL (3.60-5.2); RDW 15.8 % (11.6-15.6); WHITE BLOOD COUNT 5.6 10^3/uL (4.0-10.8)
[2024-02-05 13:46] LABS: HEMOGLOBIN 13.8 G/dL (10.7-15.3)
[2024-02-05 14:00] LABS: ANISOCYTOSIS 1+; PLATELET ESTIMATE ADEQUATE
[2024-02-05 14:16] LABS: EPITHELIAL CELLS 0-5 /hpf
[2024-02-05] MEDS ORDERED: cefTRIAXone SODIUM 1 GM VIAL ONE (14:22)
[2024-02-05] MEDS: CEFTRIAXONE 1,000 MG in DEXTROSE 5%-WATER - 50 ML IVPB ONE (14:29)
[2024-02-05 17:15] VITALS: BMI 21.3
[2024-02-05 17:53] LABS: LACTIC ACID 2.2 mmol/L (0.4-2.0)
[2024-02-05] MEDS ORDERED: DOCUSATE SODIUM 100 MG CAPSULE (FP) PO PRN (19:37)
[2024-02-05] MEDS ORDERED: ACETAMINOPHEN 1000 MG/100 ML BAG IVPB PRN (19:45)
[2024-02-05] MEDS ORDERED: CYCLOBENZAPRINE HCL 5 MG TABLET PO PRN (20:55)
[2024-02-05] MEDS: QUEtiapine FUMARATE 25 MG TABLET PO SCH (21:51)
[2024-02-05] MEDS: traZODone HCL 50 MG TABLET (FP) PO SCH (21:51)
[2024-02-05] MEDS: MIRTAZAPINE 15 MG TABLET (FP) PO SCH (21:51)
[2024-02-05] MEDS: SODIUM CHLORIDE 0.45% 1,000 ML IV SCH (21:52)
[2024-02-06 09:19] LABS: INR 0.97 (0.83-1.09); PROTHROMBIN TIME (PATIENT) 11.1 SEC (9.7-13.0)
[2024-02-06 09:22] LABS: ACTIVATED PTT 30.3 SECONDS (25.2-36.5)
[2024-02-06] MEDS: LOSARTAN POTASSIUM 25 MG TABLET PO SCH (09:27)
[2024-02-06] MEDS: CEFTRIAXONE 1 GM in DEXTROSE 5%-WATER - 50 ML IVPB SCH (09:27)
[2024-02-06] MEDS: ROSUVASTATIN CA 5 MG TABLET PO SCH (09:28)
[2024-02-06] MEDS: HEPARIN NA (PORCINE) 5,000 UNITS/ML 1ML VIAL SQ SCH (09:28)
[2024-02-06 09:42] LABS: CALCIUM 9.3 mg/dl (8.5-10.1); CREATININE 1.1 mg/dl (0.6-1.3); POTASSIUM 4.6 mmol/L (3.5-5.1)
[2024-02-06 11:38] LABS: BASO % 1.5 % (0-2.0); EOS % 6.5 % (0-4.5); HEMATOCRIT 37.9 % (32.4-45.2); HEMOGLOBIN 12.2 GM/dL (10.7-15.3); LYMPH % 17.3 % (8-40); MCH 27.8 pg (25.7-33.7); MCHC 32.3 g/dl (32.0-36.0); MEAN PLT VOLUME 9.4 fl (7.5-11.1); MONO % 15.2 % (3.8-10.2); NEUT % 59.5 % (42.8-82.8); PLATELET COUNT 224 10^3/uL (134-434); RBC 4.41 M/mm3 (3.60-5.2); RDW 15.4 % (11.6-15.6)
[2024-02-07] MEDS: LOSARTAN POTASSIUM 50 MG TABLET PO SCH (09:55)
[2024-02-07] MEDS: ACETAMINOPHEN 325 MG TABLET (FP) PO PRN (21:00)
[2024-02-08 08:51] LABS: CALCIUM 9.6 mg/dl (8.5-10.1); POTASSIUM 4.5 mmol/L (3.5-5.1); TOT PROT 6.2 g/dl (6.4-8.2)
[2024-02-08 10:36] LABS: BASO % 0.9 % (0-2.0); EOS % 4.2 % (0-4.5); HEMATOCRIT 39.6 % (32.4-45.2); HEMOGLOBIN 12.6 GM/dL (10.7-15.3); LYMPH % 13.4 % (8-40); MCH 27.9 pg (25.7-33.7); MCHC 31.9 g/dl (32.0-36.0); MEAN CELL VOLUME 87.4 fl (80-96); MEAN PLT VOLUME 9.2 fl (7.5-11.1); MONO % 15.5 % (3.8-10.2); PLATELET COUNT 237 10^3/uL (134-434); RBC 4.53 M/mm3 (3.60-5.2); RDW 15.2 % (11.6-15.6); WHITE BLOOD COUNT 5.7 K/mm3 (4.0-10.0)
[2024-02-08] MEDS: QUEtiapine FUMARATE 100 MG TABLET (FP) PO SCH (21:21)
[2024-02-09] MEDS: DONEPEZIL HCL 5 MG TABLET (FP) PO SCH (09:55)
[2024-02-09] MEDS ORDERED: LORazepam 2 MG/ML SDV VIAL IVPUSH PRN (10:00)
[2024-02-09 14:38] VITALS: RESP 18
[2024-02-09 18:52] VITALS: BP 134/85; PULSE 113; TEMP 97.2
== END 2024-02-09 18:50 | disposition home or self-care (01) | DRG 690 ==
LOC: FER 11:32 → FM/S 15:00 → OBSVTOIN 15:00 → FM/S 15:53
PROVIDERS: ADMIT Family Medicine; ATTEND Family Medicine
DX: N39.0 Urinary tract infection, site not specified (principal); B96.20 Unspecified Escherichia coli [E. coli] as the cause of diseases classified elsewhere; I10 Essential (primary) hypertension; E78.5 Hyperlipidemia, unspecified; M25.562 Pain in left knee; E86.0 Dehydration; F03.90 Unspecified dementia, unspecified severity, without behavioral disturbance, psychotic disturbance, mood disturbance, and anxiety; R62.7 Adult failure to thrive; Z68.21 Body mass index [BMI] 21.0-21.9, adult; M06.9 Rheumatoid arthritis, unspecified
CPT/HCPCS: 0241U-QW; 36415; 70450-TC; 71045-TC-FY; 80048; 80053; 81003; 81015; 81401; 82550; 82553; 82607; 83605; 83735; 84439; 84443; 84484; 85025; 85027; 85610; 85730; 86780; 87086; 87186; 93005; 93970-TC; 97116-GP; 97161-GP; 99285-25; J0131; J1644

== ENCOUNTER 2024-04-02 22:44 | Emergency (ER) | payer OTHER ==
[2024-04-02 23:02] VITALS: BP 137/80; PULSE 98; RESP 17; TEMP 97.3; BMI 22.2
[2024-04-02] MEDS ORDERED: valACYclovir HCL 500 MG TABLET (FP) ONE (23:11)
[2024-04-02] MEDS: valACYclovir HCL 500 MG TABLET (FP) PO ONE (23:15)
== END 2024-04-02 23:21 | disposition home or self-care (01) ==
LOC: FER 22:44
DX: R21 Rash and other nonspecific skin eruption (principal); B02.9 Zoster without complications
CPT/HCPCS: 99283-25